=== PATIENT | female | born 1990 | race Two or more races ===

== ENCOUNTER 2019-05-21 11:25 | Emergency (ER) | payer BC ==
[~2019-05-21] VITALS: Ht 167.6 cm; Wt 57.6 kg
[2019-05-21 11:59] VITALS: BP 129/86
[2019-05-21] MEDS ORDERED: KETOROLAC TROMETH 60MG/2ML VIAL IM ONE (14:00)
== END 2019-05-21 14:26 | disposition home or self-care (01) ==
LOC: ER 11:25
DX: S62.346A Nondisplaced fracture of base of fifth metacarpal bone, right hand, initial encounter for closed fracture (principal); Z88.0 Allergy status to penicillin; W22.8XXA Striking against or struck by other objects, initial encounter; Y93.89 Activity, other specified; Y99.8 Other external cause status; Y92.89 Other specified places as the place of occurrence of the external cause
CPT/HCPCS: 29125; 73130; 96372; 99283; J1885